=== PATIENT | female | born 1990 | race Caucasian/White ===

== ENCOUNTER 2017-06-05 12:21 | Emergency (ER) | payer SELFPAY ==
[2017-06-05] MEDS ORDERED: methylPREDNISolone Acetate 40 mg/ml Vial ONE (12:50)
== END 2017-06-05 13:16 | disposition home or self-care (01) ==
LOC: NAV ERS 12:21
DX: K04.7 Periapical abscess without sinus (principal); K02.9 Dental caries, unspecified; M19.90 Unspecified osteoarthritis, unspecified site; F31.9 Bipolar disorder, unspecified; F41.9 Anxiety disorder, unspecified; F17.210 Nicotine dependence, cigarettes, uncomplicated; Z79.899 Other long term (current) drug therapy
CPT/HCPCS: 96372; J1030

== ENCOUNTER 2017-10-16 19:56 | Emergency (ER) | payer SELFPAY | END 2017-10-16 20:42 | disposition home or self-care, planned readmission (81) | LOC: NAV ERS 19:56 | DX: J02.9 Acute pharyngitis, unspecified (principal); T78.1XXA Other adverse food reactions, not elsewhere classified, initial encounter; F41.9 Anxiety disorder, unspecified; M19.90 Unspecified osteoarthritis, unspecified site; F17.210 Nicotine dependence, cigarettes, uncomplicated; Z79.899 Other long term (current) drug therapy | CPT/HCPCS: 99282 ==

== ENCOUNTER 2018-02-13 10:47 | Emergency (ER) | payer SELFPAY ==
[2018-02-13] MEDS ORDERED: AMOXicillin 250 MG CAP ONE (11:21)
== END 2018-02-13 11:29 | disposition home or self-care (01) ==
LOC: NAV ERS 10:47
DX: K05.219 Aggressive periodontitis, localized, unspecified severity (principal); E78.5 Hyperlipidemia, unspecified; M19.90 Unspecified osteoarthritis, unspecified site; F41.9 Anxiety disorder, unspecified; F31.9 Bipolar disorder, unspecified; F17.210 Nicotine dependence, cigarettes, uncomplicated
CPT/HCPCS: 99283

== ENCOUNTER 2018-10-22 14:02 | Outpatient (CLI) | payer OTHER ==
--- NOTE | 2018-10-22 15:39 | RAD ---
LEFT HIP: 10/22/18 Two views. HISTORY: Disability evaluation. Left hip pain. Femoral head contour is normal. Joint space appears normally maintained. No arthritic change. No frac ture or acute abnormality. IMPRESSION: Unremarkable left hip. POS: C
== END 2018-10-22 14:03 | disposition home or self-care (01) ==
LOC: NAV RAD 14:02
PROVIDERS: ATTEND Family Medicine
DX: Z02.71 Encounter for disability determination (principal); M15.9 Polyosteoarthritis, unspecified; M79.7 Fibromyalgia

== ENCOUNTER 2019-09-20 09:35 | Emergency (ER) | payer SELFPAY ==
[~2019-09-20 09:35] MED LIST: Iopamidol 370 76% 100 ML VIAL ONE
[2019-09-20] MEDS ORDERED: Ondansetron ODT 4 MG TAB ONE (09:44)
[2019-09-20 10:37] LABS: ALT (SGPT) 12 U/L (8-55); AST (SGOT) 9 U/L (5-34); Albumin 4.2 g/dL (3.5-5.0); Alkaline Phosphatase 69 U/L (40-110); Anion Gap 18 mmol/L (10-20); BUN (Urea Nitrogen) 8 mg/dL (7.0-18.7); Bilirubin, Total 0.4 mg/dL (0.2-1.2); Calc. Creatinine Clearance 0 mL/min (70-130); Calcium 8.5 mg/dL (7.8-10.44); Carbon Dioxide 19 mmol/L (22-29); Chloride 104 mmol/L (98-107); Estimated GFR-MDRD Greater than 90; Globulin 2.7 g/dL (2.4-3.5); Glucose 148 mg/dL (70-105); Lipase 9 U/L (8-78); Protein, Total 6.9 g/dL (6.0-8.3); Sodium 138 mmol/L (136-145)
[2019-09-20 10:38] LABS: Acetaminophen Less than 6.0 mcg/mL (10.0-30.0); Alcohol Less than 10 mg/dL (Less than 10); CK (CPK) 67 U/L (29-168); Salicylate Less than 8.0 mg/dL (15.0-30.0)
[2019-09-20] MEDS ORDERED: Sodium Chloride 0.9% 2,000 ML ONE (10:38)
[2019-09-20 10:43] LABS: #Basophils 0.1 thou/uL (0.0-0.2); #Lymphocytes 1.2 thou/uL (1.20-3.40); #Monocytes 0.3 thou/uL (0.11-0.59); #Neutrophils 10.8 thou/uL (1.40-6.50); %Basophils 0.5 % (0.0-1.0); %Lymphocytes 9.7 % (21.0-51.0); %Monocytes 2.4 % (0.0-10.0); %Neutrophils 87.4 % (42.0-75.0); Hemoglobin 13.3 g/dL (12.0-16.0); Mean Corpuscular HGB CONC 34.5 g/dL (32.0-36.0); Mean Corpuscular Hemoglobin 35.5 pg (27.0-31.0); Mean Platelet Volume 9.9 fL (7.4-10.4); Platelet Count 291 thou/uL (130-400); Red Blood Cell (RBC) Count 3.75 mill/uL (4.20-5.40); White Blood Cell (WBC) Count 12.4 thou/uL (4.8-10.8)
[2019-09-20 10:44] LABS: Anisocytosis SLIGHT = 6-15 cells (100X) (0-5/hpf); MDiff Complete? YES; Macrocytosis SLIGHT = 6-15 cells (100X) (0-5/hpf); Platelet Morphology Comment Appears Adequate
[2019-09-20 10:49] LABS: Potassium 2.9 mmol/L (3.5-5.1)
[2019-09-20] MEDS ORDERED: NS 0.9% w/ 20 MEQ KCL 1,000 ML ONE (10:55)
[2019-09-20 11:03] LABS: Bilirubin Negative (Negative); Blood, Urine Negative (Negative); Clarity Clear (Clear); Glucose, Urine (Dipstick) Negative (Negative); Ketone, Urine Trace mg/dL (Negative); Leukocyte Negative (Negative); Nitrite Negative (Negative); Protein, Urine (Dipstick) 30 mg/dL (Neg-Trace); Specific Gravity, Urine 1.025 (1.005-1.030)
[2019-09-20 11:05] LABS: Pregnancy Test - Urine (BHCG) Negative (Negative); Pregu Control Background? CLEAR/WHITE (CLR/WHITE); Pregu Control Bar Appear? YES (CONTROL BAR); Specific Gravity 1.025 (1.002-1.036)
[2019-09-20 11:10] LABS: Bacteria/HPF Rare-Few HPF (None Seen); Mucous/LPF 2+ LPF (<2+); RBC/HPF 0-3 HPF (0-3)
[2019-09-20 11:11] LABS: Amphetamine Not Detected (NotDetected); Barbiturates Screen Not Detected (NotDetected); Benzodiazepine Screen Not Detected (NotDetected); Cocaine Metabolite Screen Not Detected (NotDetected); Medtox Control Line Valid? VALID (VALID); Methadone Not Detected (NotDetected); Methamphetamine Not Detected (NotDetected); Opiate Screen Not Detected (NotDetected); Oxycodone Screen Not Detected (NotDetected); Phencyclidine (PCP) Not Detected (NotDetected); THC/Cannabinoid Screen Detected (NotDetected); Tricyclic Screen Not Detected (NotDetected)
[2019-09-20] MEDS ORDERED: Ondansetron PF 4 MG/2 ML Vial ONE (11:28)
[2019-09-20] MEDS ORDERED: Lidocaine Viscous Sol 2% 15 ml UD Cup ONE (11:28)
[2019-09-20] MEDS ORDERED: Mag-Al Plus 1200 MG/1200 MG/120 MG/30 ML UDCUP ONE (11:28)
[2019-09-20] MEDS ORDERED: Pantoprazole 40 MG VIAL ONE (11:51)
[2019-09-20] MEDS ORDERED: Fentanyl 100 MCG/2 ML VIAL ONE (11:51)
--- NOTE | 2019-09-20 11:56 | RAD ---
EXAM: Single view of the chest HISTORY: Chest pain COMPARISON: 03/04/2013 FINDINGS: Single view of the chest shows a normal sized cardiomediastinal silhouette. There is no melita dence of consolidation, mass, or pleural effusion. The bones are unremarkable IMPRESSION: No evidence of acute cardiopulmonary disease
[2019-09-20] MEDS ORDERED: Promethazine HCl 25 MG/ML VIAL ONE ×2 (12:23→14:41)
[2019-09-20] MEDS ORDERED: Sodium Chloride 0.9% 100 ML ONE ×2 (12:23→14:41)
[2019-09-20] MEDS ORDERED: Sucralfate 1 GM TAB PO SCH (12:30)
[2019-09-20 13:23] LABS: Potassium 3.2 mmol/L (3.5-5.1)
[2019-09-20 13:26] LABS: Lactic Acid 2.3 mmol/L (0.5-2.2)
--- NOTE | 2019-09-20 15:43 | CT ---
CT Abdomen Pelvis W Con History: Abdominal pain with vomiting Comparison: None. Findings: Lung bases are clear. No pericardial effusion. Prior cholecystectomy. The liver, spleen, pancreas are unremarkable. No hydronephrosis. No free intraperitoneal gas or fluid. Mildly thickened transverse colon and ascending colon. The appendix is visualized and is normal. No acute osseous abnormality. The retroperitoneal periaortic adenopathy. The aortic contour is normal. Impression: 1. Normal appendix. 2. Mild thickening transverse colon can be seen with low-grade colitis. 3. No evidence for bowel obstruction.
[2019-09-20] MEDS ORDERED: Potassium Chloride 20 MEQ TAB ONE (16:18)
== END 2019-09-20 16:40 | disposition home or self-care (01) ==
LOC: NAV ERS 09:35
DX: E86.0 Dehydration (principal); E87.6 Hypokalemia; E78.5 Hyperlipidemia, unspecified; F31.9 Bipolar disorder, unspecified; F41.9 Anxiety disorder, unspecified; F17.210 Nicotine dependence, cigarettes, uncomplicated
CPT/HCPCS: 36415; 71045; 74177; 80053; 80306; 80307; 81003; 81015; 81025; 82550; 83605; 83690; 84484; 85025; 93005; 96361; 96365; 96366; 96375; 96376; C9113; J2405; J2550; J3010; J3480; J7050; Q0162; Q9967

== ENCOUNTER 2019-09-21 11:55 | Emergency (ER) | payer OTHER, SELFPAY ==
[2019-09-21] MEDS ORDERED: Ondansetron PF 4 MG/2 ML Vial ONE (12:28)
[2019-09-21] MEDS ORDERED: NS 0.9% w/ 20 MEQ KCL 1,000 ML ONE (12:28)
[2019-09-21] MEDS ORDERED: Pantoprazole 40 MG VIAL ONE (12:50)
[2019-09-21 13:14] LABS: Anisocytosis SLIGHT = 6-15 cells (100X) (0-5/hpf); Hypochromia SLIGHT = 6-15 cells (100X) (0-5/hpf); MDiff Complete? YES; Platelet Morphology Comment Appears Adequate
[2019-09-21 13:25] LABS: #Basophils 0.1 thou/uL (0.0-0.2); #Lymphocytes 2.4 thou/uL (1.20-3.40); #Monocytes 0.3 thou/uL (0.11-0.59); #Neutrophils 6.2 thou/uL (1.40-6.50); %Basophils 0.8 % (0.0-1.0); %Eosinophils 0.1 % (0.0-10.0); %Lymphocytes 26.5 % (21.0-51.0); %Monocytes 3.7 % (0.0-10.0); %Neutrophils 68.9 % (42.0-75.0); Hemoglobin 12.8 g/dL (12.0-16.0); Mean Corpuscular HGB CONC 32.5 g/dL (32.0-36.0); Mean Corpuscular Hemoglobin 34.9 pg (27.0-31.0); Mean Platelet Volume 9.6 fL (7.4-10.4); Platelet Count 284 thou/uL (130-400); RBC Distribution Width 13.8 % (11.5-14.5); Red Blood Cell (RBC) Count 3.66 mill/uL (4.20-5.40)
[2019-09-21 13:32] LABS: ALT (SGPT) 13 U/L (8-55); AST (SGOT) 14 U/L (5-34); Albumin 4.1 g/dL (3.5-5.0); Alkaline Phosphatase 60 U/L (40-110); Anion Gap 14 mmol/L (10-20); BUN (Urea Nitrogen) 7 mg/dL (7.0-18.7); Bilirubin, Total 0.4 mg/dL (0.2-1.2); Calc. Creatinine Clearance 0 mL/min (70-130); Carbon Dioxide 24 mmol/L (22-29); Chloride 106 mmol/L (98-107); Estimated GFR-MDRD Greater than 90; Globulin 2.7 g/dL (2.4-3.5); Glucose 101 mg/dL (70-105); Lipase 25 U/L (8-78); Potassium 3.2 mmol/L (3.5-5.1); Protein, Total 6.8 g/dL (6.0-8.3); Sodium 141 mmol/L (136-145)
[2019-09-21] MEDS ORDERED: Benzocaine 20% Spray 60 ML CAN ONE (14:38)
== END 2019-09-21 15:25 | disposition home or self-care (01) ==
LOC: NAV ERS 11:55
DX: E87.6 Hypokalemia (principal); K20.9 Esophagitis, unspecified; R11.2 Nausea with vomiting, unspecified; E78.5 Hyperlipidemia, unspecified; E78.00 Pure hypercholesterolemia, unspecified; M19.90 Unspecified osteoarthritis, unspecified site; M79.7 Fibromyalgia; F41.9 Anxiety disorder, unspecified; F31.9 Bipolar disorder, unspecified; F17.210 Nicotine dependence, cigarettes, uncomplicated; Z79.899 Other long term (current) drug therapy
CPT/HCPCS: 36415; 80053; 83605; 83690; 85025; 96365; 96366; 96375; C9113; J2405; J3480

== ENCOUNTER 2020-10-28 11:19 | Emergency (ER) | payer SELFPAY | END 2020-10-28 12:35 | disposition home or self-care (01) | LOC: NAV ERS 11:19 | DX: S93.401A Sprain of unspecified ligament of right ankle, initial encounter (principal); E78.5 Hyperlipidemia, unspecified; F17.210 Nicotine dependence, cigarettes, uncomplicated; X50.1XXA Overexertion from prolonged static or awkward postures, initial encounter ==